=== PATIENT | female | born 1950 | race Caucasian/White ===

== ENCOUNTER 2016-10-29 20:39 | Inpatient (IN) | payer BC, MEDICARE ==
[~2016-10-29] VITALS: Ht 152.4 cm; Wt 94.5 kg
[~2016-10-29 20:39] MED LIST: AMLO2.5T PO; ASPI-807 PO; CLOP75TA2 PO; LISI40TA4 PO; METO-306 PO; OLME20TA15 PO; PANT40TA4 PO; SIMV40TA5 PO
--- NOTE | 2016-10-29 20:50 | NUR ---
to bed 4 ambulatory with daughter c/o highblood pressure. pt aaox4 no acute distress noted, resp even and unlabored. place pt on cardiac monitoring, continuous pox. pending er md morrison. pt denies pain or discomfort at this time.
--- NOTE | 2016-10-29 21:11 | NUR ---
ermd at bedside to eval pt with orders received.
[2016-10-29] MEDS ORDERED: ASPIRIN 81 MG TAB.CHEW PO ONE (21:30)
[2016-10-29 21:37] LABS: BASOPHILS % (AUTO) 0.5 % (0.0-2.0); EOSINOPHILS # (AUTO) 0.3 /CMM (0.0-0.7); EOSINOPHILS % (AUTO) 3.4 % (0.0-6.0); HEMATOCRIT 40 % (33-45); HEMOGLOBIN 13.6 g/dL (11.5-14.8); LYMPHOCYTES # (AUTO) 1.8 /CMM (0.8-4.8); LYMPHOCYTES % (AUTO) 23.2 % (20.0-44.0); MEAN CORPUSCULAR HEMOGLOBIN 31 PG (26.0-33.0); MEAN CORPUSCULAR HGB CONC 34 g/dl (31.0-36.0); MEAN CORPUSCULAR VOLUME 89 fL (82-100); MONOCYTES # (AUTO) 0.4 /CMM (0.1-1.30); MONOCYTES % (AUTO) 5.1 % (2.0-12.0); NEUTROPHILS # (AUTO) 5.1 /CMM (1.8-8.9); NEUTROPHILS % (AUTO) 67.8 % (43.0-81.0); PLATELET COUNT (AUTO) 235 /CMM (150-450); RED BLOOD CELL COUNT(AUTO) 4.44 MIL/uL (4.0-5.2); WHITE BLOOD COUNT (AUTO) 7.6 K/uL (4.3-11.0)
[2016-10-29 21:51] LABS: INR 0.96 (0.87-1.13)
[2016-10-29] MEDS ORDERED: IV NS 0.9% 1,000 ML IV PRN (22:16)
--- NOTE | 2016-10-29 22:19 | NUR ---
report called to telephone lineworkeronesimo abraham.
[2016-10-29] MEDS ORDERED: ASPIRIN 81 MG TAB.CHEW ONE (22:21)
--- NOTE | 2016-10-29 22:23 | NUR ---
pt daughter at bedside. er md made aware.
[2016-10-29] MEDS ORDERED: Z GUARD REMEDY 2 OZ OINT TP PRN (22:30)
[2016-10-29] MEDS ORDERED: MAG HYDROX/AL HYDROX/SIMETH 30 ML UDC PO PRN (22:30)
[2016-10-29] MEDS ORDERED: ZOLPIDEM TARTRATE 5 MG TABLET PO PRN (22:30)
[2016-10-29] MEDS ORDERED: ACETAMINOPHEN 325 MG TABLET PO PRN (22:30)
[2016-10-29] MEDS ORDERED: MAGNESIUM HYDROXIDE 30 ML UDC PO PRN (22:30)
[2016-10-29] MEDS ORDERED: CLONIDINE HCL 0.1 MG TABLET PO PRN (22:30)
[2016-10-29] MEDS ORDERED: MORPHINE SULFATE INJ 2 MG/ML DISP.SYRIN IV PRN (22:30)
[2016-10-29] MEDS ORDERED: ONDANSETRON HCL/PF 4 MG/2 ML VIAL IVP PRN (22:30)
[2016-10-29 22:34] LABS: CALCIUM, SERUM 9.4 mg/dL (8.5-10.1); CARBON DIOXIDE 32 mmol/L (21-32); CHLORIDE 101 mmol/L (98-107); CREATININE 0.9 mg/dL (0.6-1.3); GLUCOSE 136 mg/dL (74-106); POTASSIUM 4.4 mmol/L (3.5-5.1); SODIUM SERUM 138 mmol/L (136-145); TROPONIN I < 0.017 ng/mL (0.00-0.056); UREA NITROGEN, BLOOD 17 mg/dL (7-18)
[2016-10-29 22:46] LABS: ALANINE AMINOTRANSFERASE 30 U/L (12-78); ALBUMIN 3.7 g/dL (3.4-5.0); ALKALINE PHOSPHATASE 69 U/L (46-116); ASPARTATE AMINOTRANSFERASE 21 U/L (15-37); B-TYPE NATRIURETIC PEPTIDE 485 PG/ML (0-125); BILIRUBIN,DIRECT 0.1 mg/dL (0.0-0.2); BILIRUBIN,TOTAL 0.5 mg/dL (0.2-1.0); TOTAL PROTEIN, SERUM 7.7 g/dL (6.4-8.2)
[2016-10-29 23:00] VITALS: BP 117/45
--- NOTE | 2016-10-29 23:00 | NUR ---
MOTORCYCLE REPAIRER OPENING NOTES RECEIVED PATIENT VIA GURNEY FROM ER ACLS PROTOCOL A/O X4, NOT IN ACUTE DISTRESS, TOLERATING ROOM AIR 97% R.A L HAND 18 G IV SITE INTACT NO S/S OF INFILTRATION. CALL LIGHT WITHIN REACH. SAFETY MEASURES IN PLACE, ON LOW BED, WILL CONTINUE TO MONITOR PT. NO COMPLAINS OF CHEST PAIN AT THIS TIME. HEAD TO TOE ASSESSMENT IS DONE SKIN IS INTACT PATIENT AMBULATORY.
[2016-10-29] MEDS ORDERED: ENOXAPARIN SODIUM 40 MG/0.4 ML DISP.SYRIN SQ ONE (23:23)
[2016-10-29] MEDS ORDERED: ENOXAPARIN SODIUM 40 MG/0.4 ML DISP.SYRIN SQ SCH (23:30)
[2016-10-30 04:00] VITALS: BP 124/50
--- NOTE | 2016-10-30 06:40 | NUR ---
RN ACUTE CARE CLOSING NOTES PATIENT COMFORTABLY ASLEEP AND EASILY AWAKEN, A/O X 4, HEAD OF BED ELEVATED FOR BETTER LUNG EXPANSION. TOLERATING ROOM AIR 02 SAT 99%, IV SITE NO S/S OF INFILTRATED PATENT AND FLUSHED, NOT IN ACUTE DISTRESS. RESPIRATIONS EVEN AND UNLABORED, NURSING CARE RENDERED, NEEDS ATTENDED AND ANTICIPATED, KEPT CLEAN AND DRY AND COMFORTABLE, GOOD SKIN CARE PROVIDED. FREQUENT VISUAL CHECK DONE FOR SAFETY EVERY 2 HOURS. NO COMPLAINS OF CHEST PAIN THROUGHOUT THE SHIFT. ATTACH TO TELE MONITOR, SAFE HAZARD FREE ENVIRONMENT PROVIDED. CALL LIGHT WITHIN EASY TO REACH, ON LOW BED AT ALL TIMES TO ENSURE SAFETY, WILL ENDORSE TO THE NEXT SHIFT CONTINUE PLAN OF CARE.
[2016-10-30 06:57] LABS: BASOPHILS % (AUTO) 0.5 % (0.0-2.0); EOSINOPHILS # (AUTO) 0.2 /CMM (0.0-0.7); EOSINOPHILS % (AUTO) 3.9 % (0.0-6.0); HEMATOCRIT 38 % (33-45); LYMPHOCYTES # (AUTO) 2.2 /CMM (0.8-4.8); LYMPHOCYTES % (AUTO) 38.4 % (20.0-44.0); MEAN CORPUSCULAR HEMOGLOBIN 31 PG (26.0-33.0); MEAN CORPUSCULAR HGB CONC 34 g/dl (31.0-36.0); MEAN CORPUSCULAR VOLUME 90 fL (82-100); MONOCYTES # (AUTO) 0.4 /CMM (0.1-1.30); MONOCYTES % (AUTO) 7.8 % (2.0-12.0); NEUTROPHILS # (AUTO) 2.9 /CMM (1.8-8.9); NEUTROPHILS % (AUTO) 49.4 % (43.0-81.0); PLATELET COUNT (AUTO) 224 /CMM (150-450); RDW COEFFICIENT OF VARIATION 13.7 (11.5-15.0); RED BLOOD CELL COUNT(AUTO) 4.25 MIL/uL (4.0-5.2); WHITE BLOOD COUNT (AUTO) 5.8 K/uL (4.3-11.0)
[2016-10-30 07:09] VITALS: BP 121/52
[2016-10-30] MEDS ORDERED: PANTOPRAZOLE 40 MG TABLET.DR PO SCH (07:30)
[2016-10-30 08:00] LABS: CALCIUM, SERUM 9.1 mg/dL (8.5-10.1); CREATININE 0.8 mg/dL (0.6-1.3); MAGNESIUM 1.8 mg/dL (1.8-2.4); PHOSPHORUS 3.8 mg/dL (2.5-4.9); POTASSIUM 3.9 mmol/L (3.5-5.1)
--- NOTE | 2016-10-30 08:00 | NUR ---
KNIFE MACHINE OPERATOR NOTES PATIENT IN BED RESTING NO SOB OR ACUTE DISTRESS NOTED. PERIPHERAL IV INTACT PATENT. BED IN LOW LOCKED POSITION. CALL LIGHT WITHIN REACH. DENIES ANY PAIN. WILL CONTINUE TO MONITOR.
[2016-10-30] MEDS ORDERED: CHOL50004 PO (08:12)
[2016-10-30] MEDS ORDERED: ATEN100T PO (08:12)
[2016-10-30] MEDS ORDERED: CLON0.1T PO (08:12)
[2016-10-30] MEDS ORDERED: ROSU20TA PO (08:12)
[2016-10-30] MEDS ORDERED: VITA100C5 PO (08:12)
[2016-10-30] MEDS ORDERED: ESOM40CA PO (08:12)
[2016-10-30 08:21] LABS: THYROID STIMULATING HORMONE 1.786 uIU/mL (0.358-3.74)
[2016-10-30] MEDS ORDERED: ENOXAPARIN SODIUM 40 MG/0.4 ML DISP.SYRIN SQ SCH (08:39)
[2016-10-30] MEDS ORDERED: ATENOLOL 50 MG TABLET PO SCH (09:00)
[2016-10-30] MEDS ORDERED: ASPIRIN 81 MG TAB.CHEW PO SCH (09:00)
[2016-10-30 12:00] VITALS: BP 132/86
--- NOTE | 2016-10-30 13:00 | NUR ---
CREW MEMBER NOTES PATIENT SEEN AND EVALUATE BY DIVINA DOBIE WORKER ORDERS NOTED AND CARRIED OUT.
--- NOTE | 2016-10-30 15:30 | NUR ---
MOTORCYCLE REPAIRER NOTES PATIENT DISCHARGED HOME. IN STABLE CONDITION. MD AWARE OF ALL ABNORMAL LABS. PERIPHERAL IV REMOVED WITH MINIMAL BLEEDING NOTED. ID BAND REMOVED. DISCHARGE PROTOCOL FOLLOWED. PATIENT VERBALIZES UNDERSTANDING OF DISCHARGE TEACHING. PATIENT HAS AN APPOINTMENT WITH [facility]NAGER ON 2016. PERIPHERAL IV REMOVED WITH MINIMAL BLEEDING. ID BAND ALSO REMOVED. PATIENT LEFT WITH DAUGHTER.
[2016-10-30] MEDS ORDERED: SIMVASTATIN 20 MG TABLET PO SCH (22:00)
== END 2016-10-30 16:00 | disposition home or self-care (01) | DRG 311 ==
LOC: ER 20:45 → TELE 21:53
PROVIDERS: ADMIT Nurse Practitioner Acute Care; ATTEND Nurse Practitioner Acute Care
DX: I24.9 Acute ischemic heart disease, unspecified (principal); E11.65 Type 2 diabetes mellitus with hyperglycemia; I10 Essential (primary) hypertension; E66.01 Morbid (severe) obesity due to excess calories; I25.2 Old myocardial infarction; Z88.0 Allergy status to penicillin; Z88.4 Allergy status to anesthetic agent; E78.00 Pure hypercholesterolemia, unspecified; E78.5 Hyperlipidemia, unspecified; G43.909 Migraine, unspecified, not intractable, without status migrainosus; I71.9 Aortic aneurysm of unspecified site, without rupture; K21.9 Gastro-esophageal reflux disease without esophagitis; Z68.39 Body mass index [BMI] 39.0-39.9, adult; Z79.82 Long term (current) use of aspirin; Z79.899 Other long term (current) drug therapy; Z87.891 Personal history of nicotine dependence; Z95.5 Presence of coronary angioplasty implant and graft; I25.10 Atherosclerotic heart disease of native coronary artery without angina pectoris
CPT/HCPCS: 36415; 70450-TC; 71010-TC; 80048-TC; 80061-TC; 80076-TC; 83735-TC; 83880; 84100-TC; 84443-TC; 84484-TC; 85025-TC; 85730-TC; 87081-TC; 93307-TC; A4606; J1650; J7030; Z7610

== ENCOUNTER 2017-04-27 00:36 | Emergency (ER) | payer MEDICARE ==
[~2017-04-27] VITALS: Ht 152.4 cm; Wt 90.7 kg
[~2017-04-27 00:36] MED LIST changes: -AMLO2.5T PO; +ATEN100T PO; +CHOL50004 PO; +CLON0.1T PO; -CLOP75TA2 PO; +ESOM40CA PO; -LISI40TA4 PO; -METO-306 PO; -OLME20TA15 PO; +OLME20TA21 PO; -PANT40TA4 PO; +ROSU20TA PO; -SIMV40TA5 PO; +VITA100C5 PO
[2017-04-27 00:42] VITALS: BP 147/75
--- NOTE | 2017-04-27 01:20 | NUR ---
pt refuse ekg, er made aware.
[2017-04-27] MEDS ORDERED: TRAMADOL HCL 50 MG TABLET ONE (01:23)
[2017-04-27] MEDS ORDERED: GUAIFENESIN/CODEINE 10 ML UDC ONE (01:23)
[2017-04-27 01:26] LABS: BASOPHILS % (AUTO) 0.4 % (0.0-2.0); EOSINOPHILS # (AUTO) 0.2 /CMM (0.0-0.7); EOSINOPHILS % (AUTO) 3.3 % (0.0-6.0); HEMATOCRIT 37 % (33-45); HEMOGLOBIN 12.6 g/dL (11.5-14.8); LYMPHOCYTES # (AUTO) 0.6 /CMM (0.8-4.8); LYMPHOCYTES % (AUTO) 10.6 % (20.0-44.0); MEAN CORPUSCULAR HEMOGLOBIN 31 PG (26.0-33.0); MEAN CORPUSCULAR HGB CONC 34 g/dl (31.0-36.0); MEAN CORPUSCULAR VOLUME 90 fL (82-100); MONOCYTES # (AUTO) 0.5 /CMM (0.1-1.30); MONOCYTES % (AUTO) 8.1 % (2.0-12.0); NEUTROPHILS # (AUTO) 4.5 /CMM (1.8-8.9); NEUTROPHILS % (AUTO) 77.6 % (43.0-81.0); PLATELET COUNT (AUTO) 221 /CMM (150-450); RDW COEFFICIENT OF VARIATION 13.5 (11.5-15.0); RED BLOOD CELL COUNT(AUTO) 4.09 MIL/uL (4.0-5.2); WHITE BLOOD COUNT (AUTO) 5.7 K/uL (4.3-11.0)
[2017-04-27] MEDS ORDERED: GUAIFENESIN/CODEINE 10 ML UDC PO PRN (01:30)
[2017-04-27] MEDS ORDERED: TRAMADOL HCL 50 MG TABLET PO ONE (01:30)
[2017-04-27 01:55] LABS: ALANINE AMINOTRANSFERASE 42 U/L (12-78); ALBUMIN 3.5 g/dL (3.4-5.0); ALKALINE PHOSPHATASE 69 U/L (46-116); ASPARTATE AMINOTRANSFERASE 24 U/L (15-37); BILIRUBIN,DIRECT 0.1 mg/dL (0.0-0.2); BILIRUBIN,TOTAL 0.4 mg/dL (0.2-1.0); CALCIUM, SERUM 9.4 mg/dL (8.5-10.1); CARBON DIOXIDE 27 mmol/L (21-32); CHLORIDE 99 mmol/L (98-107); GLUCOSE 144 mg/dL (74-106); POTASSIUM 3.8 mmol/L (3.5-5.1); SODIUM SERUM 134 mmol/L (136-145); TOTAL PROTEIN, SERUM 7.6 g/dL (6.4-8.2); UREA NITROGEN, BLOOD 17 mg/dL (7-18)
[2017-04-27 01:57] LABS: TROPONIN I < 0.017 ng/mL (0.00-0.056)
[2017-04-27] MEDS ORDERED: ONDANSETRON 4 MG TAB.RAPDIS ONE (02:27)
[2017-04-27] MEDS ORDERED: ONDANSETRON 4 MG TAB.RAPDIS SL ONE (02:30)
--- NOTE | 2017-04-27 03:35 | NUR ---
IV removed. Catheter intact and site benign. Pressure and 4x4 applied to site. No bleeding noted. Patient discharged to home in stable condition. Written and verbal after care instructions given. Patient verbalizes understanding of instruction. ambulatory with a steady gait
== END 2017-04-27 03:36 | disposition home or self-care (01) ==
LOC: ER 00:36
DX: R51 Headache (principal); R05 Cough; E78.00 Pure hypercholesterolemia, unspecified; I10 Essential (primary) hypertension; I25.2 Old myocardial infarction; Z79.82 Long term (current) use of aspirin; Z88.0 Allergy status to penicillin; Z88.8 Allergy status to other drugs, medicaments and biological substances
CPT/HCPCS: 36415; 71045; 80048; 80076; 84484; 85025; 85378; 87804; 93005; 99285; A4606; Q0162; 87400; Z7610

== ENCOUNTER → 2017-05-08 | Emergency (ER) | payer MEDICARE ==
--- NOTE | 2017-05-09 00:04 | NUR ---
ATTEMPTED TO CONTACT PT, LWBS
== END | disposition left against medical advice (07) ==
LOC: ER 22:36
DX: Z53.21 Procedure and treatment not carried out due to patient leaving prior to being seen by health care provider (principal)

== ENCOUNTER 2017-05-09 06:37 | Emergency (ER) | payer MEDICARE ==
[~2017-05-09] VITALS: Ht 157.5 cm; Wt 90.7 kg
--- NOTE | 2017-05-09 06:57 | NUR ---
PT AMBULATORY TO ER BED 7. PT BIB SELF C/O DIARRHEA X 1 DAY. DENIES ABD PAIN. PT PLACED IN GOWN AND ON BROKE BEATER. VSS/RESP EVEN UNLABORED/NAD NOTED/SKIN WARM AND DRY/DENIES N-V/ AFEBRILE/AOX4. AWAITING MD HERNANDEZ.
--- NOTE | 2017-05-09 07:02 | NUR ---
AT BEDSIDE FOR EVAL.
--- NOTE | 2017-05-09 07:12 | NUR ---
REPORT GIVEN TO SEFERINO HDZ FOR CARLOS.
[2017-05-09] MEDS ORDERED: ONDANSETRON HCL/PF 4 MG/2 ML VIAL ONE (07:14)
--- NOTE | 2017-05-09 07:15 | NUR ---
received report for marquez. patient remains in stable condition.
--- NOTE | 2017-05-09 07:25 | NUR ---
new iv started on left hand ,20 g. blood drawn and sent to lab.
[2017-05-09] MEDS ORDERED: ONDANSETRON HCL/PF 4 MG/2 ML VIAL IVP ONE (07:30)
[2017-05-09] MEDS ORDERED: IV NS 0.9% 500 ML BAG IV ONE (07:30)
--- NOTE | 2017-05-09 07:34 | NUR ---
patient medicated per md orders.
[2017-05-09 07:43] LABS: BASOPHILS % (AUTO) 0.1 % (0.0-2.0); EOSINOPHILS # (AUTO) 0.2 /CMM (0.0-0.7); EOSINOPHILS % (AUTO) 2.7 % (0.0-6.0); HEMATOCRIT 41 % (33-45); HEMOGLOBIN 14.3 g/dL (11.5-14.8); LYMPHOCYTES # (AUTO) 1.6 /CMM (0.8-4.8); LYMPHOCYTES % (AUTO) 20.1 % (20.0-44.0); MEAN CORPUSCULAR HEMOGLOBIN 31 PG (26.0-33.0); MEAN CORPUSCULAR HGB CONC 35 g/dl (31.0-36.0); MEAN CORPUSCULAR VOLUME 90 fL (82-100); MONOCYTES # (AUTO) 0.8 /CMM (0.1-1.30); MONOCYTES % (AUTO) 9.3 % (2.0-12.0); NEUTROPHILS # (AUTO) 5.5 /CMM (1.8-8.9); NEUTROPHILS % (AUTO) 67.8 % (43.0-81.0); PLATELET COUNT (AUTO) 337 /CMM (150-450); RDW COEFFICIENT OF VARIATION 13.3 (11.5-15.0); RED BLOOD CELL COUNT(AUTO) 4.55 MIL/uL (4.0-5.2); WHITE BLOOD COUNT (AUTO) 8.1 K/uL (4.3-11.0)
[2017-05-09 07:49] LABS: CALCIUM, SERUM 9.9 mg/dL (8.5-10.1); CREATININE 1.1 mg/dL (0.6-1.3); POTASSIUM 4.5 mmol/L (3.5-5.1)
[2017-05-09 08:08] VITALS: BP 136/79
--- NOTE | 2017-05-09 08:10 | NUR ---
IV removed. Catheter intact and site benign. Pressure and 4x4 applied to site. No bleeding noted. Patient discharged to home in stable condition. Written and verbal after care instructions given. Patient verbalizes understanding of instruction.
== END 2017-05-09 08:10 | disposition home or self-care (01) ==
LOC: ER 06:39
DX: R19.7 Diarrhea, unspecified (principal); I10 Essential (primary) hypertension; I25.2 Old myocardial infarction; Z79.82 Long term (current) use of aspirin; Z88.0 Allergy status to penicillin; Z88.8 Allergy status to other drugs, medicaments and biological substances
CPT/HCPCS: 36415; 80048; 85025; 96374; 99284; A4606; J2405; J7040; Z7610